=== PATIENT | male | born 1965 | race Hispanic/Latino ===

== ENCOUNTER 2017-10-12 08:45 | Inpatient (IN) | payer OTHER ==
[~2017-10-12] VITALS: Ht 180.3 cm; Wt 95.7 kg
[2017-10-12] MEDS ORDERED: METFORMIN HCL850 M1 ORAL (08:50)
[2017-10-12] MEDS ORDERED: LOSARTAN POTASS50 MG ORAL (08:50)
[2017-10-12] MEDS ORDERED: FUROSEMIDE40 MG ORAL (08:50)
[2017-10-12 09:20] VITALS: BP 141/92
[2017-10-12 09:36] LABS: HEMATOCRIT 42.2 % (42.0-52.0); MEAN CORPUSCULAR VOLUME 78 FL (80-99); PLATELET COUNT 191 K/UL (150-450); RED BLOOD COUNT 5.45 M/UL (4.70-6.10); RED CELL DISTRIBUTION WIDTH 17.6 % (11.6-14.8); WHITE BLOOD COUNT 10.1 K/UL (4.8-10.8)
[2017-10-12 09:39] LABS: ANION GAP 9 mmol/L (5-15); BLOOD UREA NITROGEN 14 mg/dL (7-18); CALCIUM 9.2 MG/DL (8.5-10.1); CARBON DIOXIDE 30 MMOL/L (21-32); CHLORIDE 96 MMOL/L (98-107); INR 1.3 (0.9-1.1); POTASSIUM 3.4 MMOL/L (3.5-5.1); SODIUM 135 MMOL/L (136-145)
[2017-10-12 09:49] LABS: ALANINE AMINOTRANSFERASE 32 U/L (12-78); ALBUMIN 3.3 G/DL (3.4-5.0); ALBUMIN/GLOBULIN RATIO 0.7 (1.0-2.7); ALKALINE PHOSPHATASE 116 U/L (46-116); ASPARTATE AMINO TRANSFERASE 39 U/L (15-37); BILIRUBIN,TOTAL 2.1 MG/DL (0.2-1.0)
[2017-10-12 09:51] LABS: BILIRUBIN,DIRECT 0.8 MG/DL (0.0-0.3)
[2017-10-12] MEDS ORDERED: Meclizine 25mg tab ORAL ONE (10:15)
[2017-10-12 11:10] LABS: APPEARANCE,URINE CLEAR; BILIRUBIN, URINE NEGATIVE (NEGATIVE); COLOR,URINE BROWN; GLUCOSE, URINE (UA) NEGATIVE (NEGATIVE); KETONES,URINE 3+ (NEGATIVE); LEUKOCYTE ESTERASE ,URINE 1+ (NEGATIVE); NITRITE,URINE NEGATIVE (NEGATIVE); PH,URINE 6 (4.5-8.0); PROTEIN,URINE 3+ (NEGATIVE); UROBILINOGEN,URINE 4 MG/DL (0.0-1.0)
[2017-10-12 11:30] VITALS: BP 134/84
--- NOTE | 2017-10-12 12:28 | Diagnostic Imaging Report ---
Indication: Vomiting. Technique: The head was imaged in a 1.5 Bailey magnet. Sequences obtained include sagittal and axial T1 FLAIR, axial T2 fast spin echo with fat saturation, axial T2 FLAIR, diffusion and ADC map. Comparison: None Study is significantly degraded by motion. There is a large focus of diffusion restriction within the left cerebellum involving the vermis and the cerebellar hemisphere particularly the mid to lower aspect of the left cerebellum. Findings consistent with acute CVA. There is associated edema seen as T1 hypointense/T2 hyperintense focus. There is no magnetic susceptibility or evidence of hemorrhage. There is generalized atrophy of the brain which are mild. Patchy periventricular/subcortical T2 hyperintense foci noted consistent with chronic small vessel disease. Mild mucosal thickening involving the paranasal sinuses demonstrated. The corpus callosum is unremarkable. Sella and osseous bone marrow signal. Unremarkable. There is moderate deviation of the nasal septum toward the left. IMPRESSION: Acute subacute left cerebellar CVA. Associated edema. No associated hemorrhage. No associated mass effect. Mild generalized atrophy of the brain. Mild, patchy nonspecific white matter T2 hyperintense foci. This may be due to chronic small vessel disease. Mild sinusitis. Critical value communication. Findings were discussed via telephone with the emergency room department physician Dr. Peterson at 12:22 pm, 10/12/2017 . Motion artifacts
[2017-10-12] MEDS ORDERED: Miralax 17gm pkt ORAL PRN (12:30)
[2017-10-12] MEDS ORDERED: Morphine Sulfate 4mg/ml Inj IVP PRN (12:30)
[2017-10-12] MEDS ORDERED: Albuterol/Ipratropium 3ml neb HHN PRN (12:30)
[2017-10-12] MEDS ORDERED: Enalaprilat 2.5mg/2ml Inj IV PRN (12:30)
[2017-10-12] MEDS ORDERED: dilTIAZem HCl 25mg/5ml Inj IV PRN (12:30)
[2017-10-12] MEDS ORDERED: Ketorolac 30mg Inj IV PRN (12:30)
[2017-10-12] MEDS ORDERED: Nitroglycerin Subl 0.4mg tab SL PRN (12:45)
--- NOTE | 2017-10-12 13:25 | Emergency Room Report ---
History of Present Illness General Chief Complaint: Nausea Source: Patient, EMS Present Illness HPI The patient states that he developed vertigo/spinning sensation over the past 2 days. He is also had vomiting. He states the symptoms are much worse with movement of his head. He states it also is worse when he opens his eyes. He denies trauma. He states that he has recurrent vomiting with the symptoms. He also notes that he has had occasional shortness of breath. He denies chest pain. He denies recent illness. He denies fever or chills. He denies blurry vision. He denies weakness. He has no other complaints. Allergies: Coded Allergies: No Known Allergies (Unverified , 10/12/17) Patient History Past Medical History: see triage record, DM, HTN, CHF Social History: Reports: smoking, alcohol use, drug use Reviewed Nursing Documentation: PMH: Agreed; PSxH: Agreed Nursing Documentation-PMH Past Medical History: No History, Except For Hx Hypertension: Yes Hx Diabetes: Yes Review of Systems All Other Systems: negative except mentioned in HPI Physical Exam Vital Signs Date Time Temp Pulse Resp B/P (MAP) Pulse Ox O2 Delivery O2 Flow Rate FiO2 10/12/17 08:44 98.1 84 20 139/91 97 Room Air 98.1 Sp02 EP Interpretation: reviewed, normal General Appearance: no apparent distress, alert, GCS 15, non-toxic Head: normocephalic, atraumatic Eyes: bilateral eye normal inspection, bilateral eye PERRL ENT: hearing grossly normal, normal pharynx, no angioedema, normal voice Neck: full range of motion, supple/symm/no masses Respiratory: chest non-tender, lungs clear, normal breath sounds, speaking full sentences Cardiovascular #1: regular rate, rhythm, no edema Gastrointestinal: normal bowel sounds, non tender, soft, non-distended, no guarding, no rebound Rectal: deferred Musculoskeletal: normal range of motion, non-tender Neurologic: alert, oriented x3, responsive, motor strength/tone normal, sensory intact, speech normal, nystagmus Psychiatric: judgement/insight normal, memory normal, mood/affect normal, no suicidal/homicidal ideation Skin: normal color, no rash, warm/dry, well hydrated Medical Decision Making Diagnostic Impression: Primary Impression: Cerebrovascular accident (CVA) due to embolism of left cerebellar artery Additional Impression: Elevated troponin ER Course This patient is found to have a large cerebellar infarct. There is some edema but no mass effect. Likely this infarct occurred 2 days ago when the patient's symptoms first started. This was identified on MRI of the brain. The patient also has an indeterminate troponin. Possibly this is a demand ischemia. Regardless, the patient will need to be evaluated by cardiology. The patient also underwent CT of the head to further assess for possibility of bleeding and this showed no bleeding. The patient was given aspirin after I had determined that there was no evidence of intracranial bleed. The patient is admitted for further evaluation and treatment. This patient is critically ill. This patient required complex medical decision- making, aggressive intervention, extensive laboratory workup and monitoring. Critical care time: 40 minutes. Laboratory Tests Test 10/12/17 09:20 10/12/17 11:00 White Blood Count 10.1 K/UL (4.8-10.8) Red Blood Count 5.45 M/UL (4.70-6.10) Hemoglobin 13.0 G/DL (14.2-18.0) L Hematocrit 42.2 % (42.0-52.0) Mean Corpuscular Volume 78 FL (80-99) L Mean Corpuscular Hemoglobin 23.9 PG (27.0-31.0) L Mean Corpuscular Hemoglobin Concent 30.9 G/DL (32.0-36.0) L Red Cell Distribution Width 17.6 % (11.6-14.8) H Platelet Count 191 K/UL (150-450) Mean Platelet Volume 9.6 FL (6.5-10.1) Neutrophils (%) (Auto) % (45.0-75.0) Lymphocytes (%) (Auto) % (20.0-45.0) Monocytes (%) (Auto) % (1.0-10.0) Eosinophils (%) (Auto) % (0.0-3.0) Basophils (%) (Auto) % (0.0-2.0) Differential Total Cells Counted 100 Neutrophils % (Manual) 89 % (45-75) H Lymphocytes % (Manual) 8 % (20-45) L Monocytes % (Manual) 3 % (1-10) Eosinophils % (Manual) 0 % (0-3) Basophils % (Manual) 0 % (0-2) Band Neutrophils 0 % (0-8) Platelet Estimate Adequate Platelet Morphology Normal Anisocytosis 1+ Prothrombin Time 13.4 SEC (9.30-11.50) H Prothrombin Time INR 1.3 (0.9-1.1) H PTT 30 SEC (23-33) Sodium Level 135 MMOL/L (136-145) L Potassium Level 3.4 MMOL/L (3.5-5.1) L Chloride Level 96 MMOL/L (98-107) L Carbon Dioxide Level 30 MMOL/L (21-32) Anion Gap 9 mmol/L (5-15) Blood Urea Nitrogen 14 mg/dL (7-18) Creatinine 1.0 MG/DL (0.55-1.30) Estimate Glomerular Filtration Rate > 60 mL/min (>60) Glucose Level 121 MG/DL (74-106) H Calcium Level 9.2 MG/DL (8.5-10.1) Total Bilirubin 2.1 MG/DL (0.2-1.0) H Direct Bilirubin 0.8 MG/DL (0.0-0.3) H Aspartate Amino Transferase (AST) 39 U/L (15-37) H Alanine Aminotransferase (ALT) 32 U/L (12-78) Alkaline Phosphatase 116 U/L (46-116) Troponin I 0.425 ng/mL (0.000-0.056) Total Protein 7.9 G/DL (6.4-8.2) Albumin 3.3 G/DL (3.4-5.0) L Globulin 4.6 g/dL Albumin/Globulin Ratio 0.7 (1.0-2.7) L Lipase 144 U/L (73-393) Urine Color Brown Urine Appearance Clear Urine pH 6 (4.5-8.0) Urine Specific [place] 1.025 (1.005-1.035) Urine Protein 3+ (NEGATIVE) H Urine Glucose (UA) Negative (NEGATIVE) Urine Ketones 3+ (NEGATIVE) H Urine Occult Blood 1+ (NEGATIVE) H Urine Nitrite Negative (NEGATIVE) Urine Bilirubin Negative (NEGATIVE) Urine Urobilinogen 4 MG/DL (0.0-1.0) H Urine Leukocyte Esterase 1+ (NEGATIVE) H Urine RBC 0-2 /HPF (0 - 0) H Urine WBC 0-2 /HPF (0 - 0) Urine Squamous Epithelial Cells Occasional /LPF Urine Bacteria Few /HPF (NONE) Urine Opiates Screen Negative (NEGATIVE) Urine Barbiturates Screen Negative (NEGATIVE) Phencyclidine (PCP) Screen Negative (NEGATIVE) Urine Amphetamines Screen Negative (NEGATIVE) Urine Benzodiazepines Screen Negative (NEGATIVE) Urine Cocaine Screen Negative (NEGATIVE) Urine Marijuana (THC) Screen Positive (NEGATIVE) H EKG Diagnostic Results Rate: normal Rhythm: NSR ST Segments: no acute changes Other Impression L.BBB Rhythm Strip Diag. Results EP Interpretation: yes Rate: 100 Rhythm: NSR, no PVC's, no ectopy Last Vital Signs Date Time Temp Pulse Resp B/P (MAP) Pulse Ox O2 Delivery O2 Flow Rate FiO2 10/12/17 11:30 80 16 134/84 95 Room Air 10/12/17 09:20 98.1 98.1 Disposition: ADMITTED INPATIENT Condition: Critical Referrals: Daryl DAVEREFERRING (PCP) JARVIS WATTS D.O. Oct 12, 2017 13:25
[2017-10-12 14:00] VITALS: BP 133/89
--- NOTE | 2017-10-12 14:11 | Diagnostic Imaging Report ---
Indication: Vomiting. Acute cerebellar CVA Technique: Contiguous 5 mm thick transaxial imaging of the head obtained in a Siemens Sensation [address] scanner. Soft tissue and bone windows generated. Automatic Exposure Control was utilized. Total Dose length Product (DLP): 1499.[address] Dose Index Volume (CTDIvol): 70.38 mGy Comparison: none Findings: Low-attenuation edema demonstrated in the left cerebellum. There is no evidence of acute hemorrhage. No mass effect on the fourth ventricle demonstrated. Supratentorial brain appears relatively normal. There is minimal atrophy present. Some mild scattered low attenuation involving white matter noted. IMPRESSION: No acute hemorrhage identified. Acute to subacute left cerebellar CVA noted. The CT scanner at [facility] is accredited by the [employer] and the scans are performed using dose optimization techniques as appropriate to a performed exam including Automatic Exposure control.
[2017-10-12 15:01] VITALS: BP 131/87
[2017-10-12] MEDS: Heparin 5000 units/ml inj SUBQ SCH ×2 (15:48→21:45)
--- NOTE | 2017-10-12 15:54 | History & Physical ---
History and Physical History & Physicial Dictated for Int Med-Dr Hernández no. [id number]. DARA WELLINGTON Oct 12, 2017 15:54
[2017-10-12] MEDS: NovoLOG Insulin Flexpen SUBQ SCH ×2 (16:54→20:51)
--- NOTE | 2017-10-12 18:39 | Consultation ---
History of Present Illness General Date patient seen: Oct 12, 2017 Chief Complaint: Nausea Present Illness HPI 52 year old male with hx of DM, and HTN presented to er c/o vertigo/spinning sensation over the past 2 days. He is also had vomiting. He states the symptoms are much worse with movement of his head. He states it also is worse when he opens his eyes. He also has had occasional shortness of breath. Pt is admitted to telemetry for further work up. Allergies: Coded Allergies: No Known Allergies (Unverified , 10/12/17) Medication History Scheduled Furosemide* (Lasix*), 40 MG ORAL DAILY, (Reported) Losartan Potassium* (Losartan Potassium*), 50 MG ORAL DAILY, (Reported) Metformin Hcl* (Metformin Hcl*), 850 MG ORAL DAILY, (Reported) Patient History Healthcare decision maker Resuscitation status Full Code Advanced Directive on File Past Medical/Surgical History Past Medical/Surgical History: (1) HTN (hypertension) (2) Diabetes mellitus Review of Systems All Other Systems: negative except mentioned in HPI Physical Exam General Appearance: WD/WN Lines, tubes and drains: peripheral HEENT: normocephalic, anicteric Neck: non-tender, normal alignment Respiratory/Chest: lungs clear, normal breath sounds Breasts: no masses Cardiovascular/Chest: normal peripheral pulses Abdomen: normal bowel sounds Genitourinary/Rectal: normal genital exam Extremities: non-tender Last 24 Hour Vital Signs Date Time Temp Pulse Resp B/P (MAP) Pulse Ox O2 Delivery O2 Flow Rate FiO2 10/12/17 15:12 79 10/12/17 15:01 97.0 81 19 131/87 98 Room Air 97.0 10/12/17 14:45 98.1 81 21 133/89 95 Room Air 98.1 10/12/17 14:00 81 21 133/89 95 Room Air 10/12/17 11:30 80 16 134/84 95 Room Air 10/12/17 09:20 98.1 97 24 141/92 95 Room Air 98.1 10/12/17 08:44 98.1 84 20 139/91 97 Room Air 98.1 Laboratory Tests Test 10/12/17 09:20 10/12/17 11:00 White Blood Count 10.1 K/UL (4.8-10.8) Red Blood Count 5.45 M/UL (4.70-6.10) Hemoglobin 13.0 G/DL (14.2-18.0) L Hematocrit 42.2 % (42.0-52.0) Mean Corpuscular Volume 78 FL (80-99) L Mean Corpuscular Hemoglobin 23.9 PG (27.0-31.0) L Mean Corpuscular Hemoglobin Concent 30.9 G/DL (32.0-36.0) L Red Cell Distribution Width 17.6 % (11.6-14.8) H Platelet Count 191 K/UL (150-450) Mean Platelet Volume 9.6 FL (6.5-10.1) Neutrophils (%) (Auto) % (45.0-75.0) Lymphocytes (%) (Auto) % (20.0-45.0) Monocytes (%) (Auto) % (1.0-10.0) Eosinophils (%) (Auto) % (0.0-3.0) Basophils (%) (Auto) % (0.0-2.0) Differential Total Cells Counted 100 Neutrophils % (Manual) 89 % (45-75) H Lymphocytes % (Manual) 8 % (20-45) L Monocytes % (Manual) 3 % (1-10) Eosinophils % (Manual) 0 % (0-3) Basophils % (Manual) 0 % (0-2) Band Neutrophils 0 % (0-8) Platelet Estimate Adequate Platelet Morphology Normal Anisocytosis 1+ Prothrombin Time 13.4 SEC (9.30-11.50) H Prothromb Time International Ratio 1.3 (0.9-1.1) H Activated Partial Thromboplast Time 30 SEC (23-33) Sodium Level 135 MMOL/L (136-145) L Potassium Level 3.4 MMOL/L (3.5-5.1) L Chloride Level 96 MMOL/L (98-107) L Carbon Dioxide Level 30 MMOL/L (21-32) Anion Gap 9 mmol/L (5-15) Blood Urea Nitrogen 14 mg/dL (7-18) Creatinine 1.0 MG/DL (0.55-1.30) Estimat Glomerular Filtration Rate > 60 mL/min (>60) Glucose Level 121 MG/DL (74-106) H Calcium Level 9.2 MG/DL (8.5-10.1) Total Bilirubin 2.1 MG/DL (0.2-1.0) H Direct Bilirubin 0.8 MG/DL (0.0-0.3) H Aspartate Amino Transf (AST/SGOT) 39 U/L (15-37) H Alanine Aminotransferase (ALT/SGPT) 32 U/L (12-78) Alkaline Phosphatase 116 U/L (46-116) Troponin I 0.425 ng/mL (0.000-0.056) Total Protein 7.9 G/DL (6.4-8.2) Albumin 3.3 G/DL (3.4-5.0) L Globulin 4.6 g/dL Albumin/Globulin Ratio 0.7 (1.0-2.7) L Lipase 144 U/L (73-393) Urine Color Brown Urine Appearance Clear Urine pH 6 (4.5-8.0) Urine Specific [place] 1.025 (1.005-1.035) Urine Protein 3+ (NEGATIVE) H Urine Glucose (UA) Negative (NEGATIVE) Urine Ketones 3+ (NEGATIVE) H Urine Occult Blood 1+ (NEGATIVE) H Urine Nitrite Negative (NEGATIVE) Urine Bilirubin Negative (NEGATIVE) Urine Urobilinogen 4 MG/DL (0.0-1.0) H Urine Leukocyte Esterase 1+ (NEGATIVE) H Urine RBC 0-2 /HPF (0 - 0) H Urine WBC 0-2 /HPF (0 - 0) Urine Squamous Epithelial Cells Occasional /LPF Urine Bacteria Few /HPF (NONE) Urine Opiates Screen Negative (NEGATIVE) Urine Barbiturates Screen Negative (NEGATIVE) Phencyclidine (PCP) Screen Negative (NEGATIVE) Urine Amphetamines Screen Negative (NEGATIVE) Urine Benzodiazepines Screen Negative (NEGATIVE) Urine Cocaine Screen Negative (NEGATIVE) Urine Marijuana (THC) Screen Positive (NEGATIVE) H Height (Feet): 5 Height (Inches): 11.00 Weight (Pounds): 230 Medications Current Medications Medications (Trade) Dose Ordered Sig/Gildardo Route PRN Reason Start Time Stop Time Status Last Admin Dose Admin Acetaminophen (Tylenol) 650 mg Q4H PRN ORAL T>100.5 10/12/17 12:30 11/11/17 12:29 Albuterol/ Ipratropium (Albuterol/ Ipratropium) 3 ml Q4H PRN HHN Shortness of Breath 10/12/17 12:30 10/17/17 12:29 Aspirin (ASA) 162 mg DAILY ORAL 10/13/17 13:00 11/12/17 12:59 Dextrose (Dextrose 50%) STAT PRN IV Hypoglycemia 10/12/17 12:30 11/11/17 12:29 Diltiazem HCl (Cardizem) 10 mg EVERY HOUR PRN IV HR more than 120BPM 10/12/17 12:30 11/11/17 12:29 Enalaprilat (Vasotec) 2.5 mg Q6H PRN IV SBP > 160mmHg 10/12/17 12:30 11/11/17 12:29 Heparin Sodium (Porcine) (Heparin 5000 units/ml) 5,000 units EVERY 8 HOURS SUBQ 10/12/17 14:00 11/11/17 13:59 10/12/17 15:48 Insulin Aspart (NovoLOG) BEFORE MEALS AND HS SUBQ 10/12/17 16:30 11/11/17 16:29 10/12/17 16:54 Losartan Potassium (Cozaar) 50 mg DAILY ORAL 10/13/17 09:00 11/12/17 08:59 Morphine Sulfate (Morphine Sulfate) 2 mg Q4H PRN IVP Severe Pain (Pain Scale 7-10) 10/12/17 12:30 10/19/17 12:29 Nitroglycerin (Ntg) 0.4 mg Q5MIN X 3 DOSES PRN SL Prn Chest Pain 10/12/17 12:45 11/11/17 12:44 Ondansetron HCl (Zofran) 4 mg Q6H PRN IVP Nausea & Vomiting 10/12/17 12:30 11/11/17 12:29 Pantoprazole (Protonix) 40 mg DAILY ORAL 10/13/17 09:00 11/12/17 08:59 Polyethylene Glycol (Miralax) 17 gm DAILYPRN PRN ORAL Constipation 10/12/17 12:30 11/11/17 12:29 Temazepam (Restoril) 15 mg HSPRN PRN ORAL Insomnia 10/12/17 21:00 10/19/17 20:59 Assessment/Plan Problem List: (1) Cerebrovascular accident (CVA) due to embolism of left cerebellar artery ICD Codes: I63.442 - Cerebral infarction due to embolism of left cerebellar artery SNOMED: 057381267 (2) Elevated troponin ICD Codes: R74.8 - Abnormal levels of other serum enzymes SNOMED: 593642134, 681580566, 184934296 (3) Diabetes mellitus ICD Codes: E11.9 - Type 2 diabetes mellitus without complications SNOMED: 63183704 (4) HTN (hypertension) ICD Codes: I10 - Essential (primary) hypertension SNOMED: 81038202 Assessment/Plan neuro f/u symptomatic treatment cardio evaluation to optimize the cardiac meds dvt prophylaxis sliding scale Wendy Marroquin MD Oct 12, 2017 18:39
--- NOTE | 2017-10-12 19:42 | Cardiology Progress Note ---
Assessment/Plan Assessment/Plan vertigo cerebellar cva htn dm tobaco use do marijuana use poor medical compliance smoking cessation d./ w family needs neuro evla carotidu duplex ekg repeat trop and start statin / ecotrin Subjective Cardiovascular: Denies: chest pain, lightheadedness, palpitations Respiratory: Denies: shortness of breath Gastrointestinal/Abdominal: Reports: nausea; Denies: abdominal pain Genitourinary: Denies: burning Objective Last 24 Hour Vital Signs Date Time Temp Pulse Resp B/P (MAP) Pulse Ox O2 Delivery O2 Flow Rate FiO2 10/12/17 15:12 79 10/12/17 15:01 97.0 81 19 131/87 98 Room Air 97.0 10/12/17 14:45 98.1 81 21 133/89 95 Room Air 98.1 10/12/17 14:00 81 21 133/89 95 Room Air 10/12/17 11:30 80 16 134/84 95 Room Air 10/12/17 09:20 98.1 97 24 141/92 95 Room Air 98.1 10/12/17 08:44 98.1 84 20 139/91 97 Room Air 98.1 General Appearance: alert Cardiovascular: normal rate Respiratory/Chest: lungs clear, normal breath sounds Abdomen: normal bowel sounds, non tender, soft Extremities: non-tender, no swelling Laboratory Tests Test 10/12/17 09:20 10/12/17 11:00 White Blood Count 10.1 K/UL (4.8-10.8) Red Blood Count 5.45 M/UL (4.70-6.10) Hemoglobin 13.0 G/DL (14.2-18.0) L Hematocrit 42.2 % (42.0-52.0) Mean Corpuscular Volume 78 FL (80-99) L Mean Corpuscular Hemoglobin 23.9 PG (27.0-31.0) L Mean Corpuscular Hemoglobin Concent 30.9 G/DL (32.0-36.0) L Red Cell Distribution Width 17.6 % (11.6-14.8) H Platelet Count 191 K/UL (150-450) Mean Platelet Volume 9.6 FL (6.5-10.1) Neutrophils (%) (Auto) % (45.0-75.0) Lymphocytes (%) (Auto) % (20.0-45.0) Monocytes (%) (Auto) % (1.0-10.0) Eosinophils (%) (Auto) % (0.0-3.0) Basophils (%) (Auto) % (0.0-2.0) Differential Total Cells Counted 100 Neutrophils % (Manual) 89 % (45-75) H Lymphocytes % (Manual) 8 % (20-45) L Monocytes % (Manual) 3 % (1-10) Eosinophils % (Manual) 0 % (0-3) Basophils % (Manual) 0 % (0-2) Band Neutrophils 0 % (0-8) Platelet Estimate Adequate Platelet Morphology Normal Anisocytosis 1+ Prothrombin Time 13.4 SEC (9.30-11.50) H Prothromb Time International Ratio 1.3 (0.9-1.1) H Activated Partial Thromboplast Time 30 SEC (23-33) Sodium Level 135 MMOL/L (136-145) L Potassium Level 3.4 MMOL/L (3.5-5.1) L Chloride Level 96 MMOL/L (98-107) L Carbon Dioxide Level 30 MMOL/L (21-32) Anion Gap 9 mmol/L (5-15) Blood Urea Nitrogen 14 mg/dL (7-18) Creatinine 1.0 MG/DL (0.55-1.30) Estimat Glomerular Filtration Rate > 60 mL/min (>60) Glucose Level 121 MG/DL (74-106) H Calcium Level 9.2 MG/DL (8.5-10.1) Total Bilirubin 2.1 MG/DL (0.2-1.0) H Direct Bilirubin 0.8 MG/DL (0.0-0.3) H Aspartate Amino Transf (AST/SGOT) 39 U/L (15-37) H Alanine Aminotransferase (ALT/SGPT) 32 U/L (12-78) Alkaline Phosphatase 116 U/L (46-116) Troponin I 0.425 ng/mL (0.000-0.056) Total Protein 7.9 G/DL (6.4-8.2) Albumin 3.3 G/DL (3.4-5.0) L Globulin 4.6 g/dL Albumin/Globulin Ratio 0.7 (1.0-2.7) L Lipase 144 U/L (73-393) Urine Color Brown Urine Appearance Clear Urine pH 6 (4.5-8.0) Urine Specific [place] 1.025 (1.005-1.035) Urine Protein 3+ (NEGATIVE) H Urine Glucose (UA) Negative (NEGATIVE) Urine Ketones 3+ (NEGATIVE) H Urine Occult Blood 1+ (NEGATIVE) H Urine Nitrite Negative (NEGATIVE) Urine Bilirubin Negative (NEGATIVE) Urine Urobilinogen 4 MG/DL (0.0-1.0) H Urine Leukocyte Esterase 1+ (NEGATIVE) H Urine RBC 0-2 /HPF (0 - 0) H Urine WBC 0-2 /HPF (0 - 0) Urine Squamous Epithelial Cells Occasional /LPF Urine Bacteria Few /HPF (NONE) Urine Opiates Screen Negative (NEGATIVE) Urine Barbiturates Screen Negative (NEGATIVE) Phencyclidine (PCP) Screen Negative (NEGATIVE) Urine Amphetamines Screen Negative (NEGATIVE) Urine Benzodiazepines Screen Negative (NEGATIVE) Urine Cocaine Screen Negative (NEGATIVE) Urine Marijuana (THC) Screen Positive (NEGATIVE) DYLAN OCASIO Oct 12, 2017 19:42
[2017-10-12 20:00] VITALS: BP 132/86
[2017-10-12] MEDS ORDERED: Atorvastatin 20mg tab ORAL SCH (21:00)
--- NOTE | 2017-10-12 22:00 | History and Physical Report ---
DATE OF ADMISSION: 10/12/2017 CHIEF COMPLAINT: The patient is a 52-year-old male, presents with chief complaint of nausea, vomiting, and vertigo. HISTORY OF PRESENT ILLNESS: Began one day prior to admission. The patient began to experience nausea and vomiting. The patient was also complaining of being dizzy. The patient was unsteady on his feet. Much of the history and physical is obtained from the patient's significant other, Alondra at the bedside. The patient himself is extremely somnolent, however, he is arousable. The patient presented to [place] emergency room. The patient was admitted with nausea, vomiting, vertigo, and hypoglycemia. REVIEW OF SYSTEMS: Unable to assess, secondary to the patient's mental status. PAST MEDICAL HISTORY: Significant for: 1. Diabetes type 2. 2. Hypertension. PAST SURGICAL HISTORY: The patient denies. CURRENT MEDICATIONS: 1. Furosemide 40 mg p.o. daily. 2. Losartan 50 mg p.o. daily. 3. Metformin 850 mg p.o. twice daily. ALLERGIES: No known drug allergies. SOCIAL HISTORY: The patient has a significant other. The patient admits to tobacco use of one-quarter pack per day. The patient admits to alcohol use on the weekends. PHYSICAL EXAMINATION: VITAL SIGNS: Temperature 98.1, respirations 20, pulse 84, and blood pressure 139/91. GENERAL: The patient is a well-developed, well-nourished, slightly obese male, in no apparent distress. HEENT: Eyes, pupils are equal and responsive to light and accommodation. Extraocular movements are intact. NECK: Supple without lymphadenopathy. CHEST: Lungs are clear to auscultation bilaterally without wheezes or rales. CARDIOVASCULAR: Regular rhythm and rate. S1, S2 normal without murmurs, rubs, or gallops. ABDOMEN: Soft, nontender, and nondistended. Positive bowel sounds. No evidence of hepatosplenomegaly. Currently, no rebound or guarding noted. EXTREMITIES: Negative for clubbing, cyanosis, or edema. RECTAL/GENITAL: Refused. NEUROLOGIC: Cranial nerves II through XII are grossly intact without focal deficits. Motor strength is 5/5 bilaterally. LABORATORY AND DIAGNOSTIC DATA: Laboratory studies, WBC 10.1, hemoglobin 13.0, hematocrit 42.2, and platelets 191,000. Sodium 135, potassium 3.4, chloride 96, CO2 30, BUN 14, creatinine 1.0, and glucose 121. Troponin elevated at 0.425. An MRI of the brain revealed acute left cerebellar cerebrovascular accident. ASSESSMENT: This is a 52-year-old male with: 1. Nausea with vomiting. 2. Vertigo. 3. Acute cerebellar cerebrovascular accident, left. 4. Elevated troponin. 5. Diabetes type 2. 6. Hypertension. TREATMENT: 1. Nausea with vomiting/vertigo. This is probably secondary to acute stroke below. 2. Acute left cerebellar cerebrovascular accident. A Neurology consultation has been obtained with Dr. Matheus Elise. The patient has been started on aspirin. We will follow recommendations of Neurology. Carotid duplex, Dopplers, and echocardiogram are pending. 3. Elevated troponin. A Cardiology consultation has been obtained with Dr. Donald Hollingsworth. 4. Diabetes type 2. The patient is currently stable off medication. 5. Hypertension. Continue losartan as above. Daniel Duffy M.D. DR: DANISH JOB#: [id number] CC:
[2017-10-13] VITALS (11 sets, daily range): BP systolic 106–139; BP diastolic 9–115
[2017-10-13] MEDS: Heparin 5000 units/ml inj SUBQ SCH ×2 (05:34→13:12)
[2017-10-13] MEDS: NovoLOG Insulin Flexpen SUBQ SCH ×3 (06:16→16:53)
[2017-10-13 08:11] LABS: BASOPHILS % (AUTO) 0.8 % (0.0-2.0); EOSINOPHILS % (AUTO) 7.4 % (0.0-3.0); HEMOGLOBIN 13.2 G/DL (14.2-18.0); LYMPHOCYTES % (AUTO) 14.3 % (20.0-45.0); MEAN CORPUSCULAR VOLUME 78 FL (80-99); MONOCYTES % (AUTO) 5.9 % (1.0-10.0); NEUTROPHILS % (AUTO) 71.7 % (45.0-75.0); PLATELET COUNT 211 K/UL (150-450); RED BLOOD COUNT 5.54 M/UL (4.70-6.10); RED CELL DISTRIBUTION WIDTH 17.7 % (11.6-14.8); WHITE BLOOD COUNT 8.9 K/UL (4.8-10.8)
[2017-10-13 08:32] LABS: INR 1.2 (0.9-1.1)
[2017-10-13 08:39] LABS: ANION GAP 9 mmol/L (5-15); BLOOD UREA NITROGEN 15 mg/dL (7-18); CARBON DIOXIDE 31 MMOL/L (21-32); CHLORIDE 98 MMOL/L (98-107); CREATININE 0.8 MG/DL (0.55-1.30); POTASSIUM 3.7 MMOL/L (3.5-5.1); SODIUM 138 MMOL/L (136-145)
[2017-10-13 08:48] LABS: CHOLESTEROL 78 MG/DL (< 200); HDL CHOLESTEROL 28 MG/DL (40-60); TRIGLYCERIDES 37 MG/DL (30-150)
[2017-10-13] MEDS ORDERED: Losartan 50mg tab ORAL SCH (09:00)
[2017-10-13] MEDS ORDERED: Aspirin Baby 81mg ORAL SCH (13:00)
--- NOTE | 2017-10-13 13:18 | Pulmonology Progress Note ---
Assessment/Plan Problems: (1) Cerebrovascular accident (CVA) due to embolism of left cerebellar artery (2) Elevated troponin (3) EF of 15% (4) Ventricular mural thrombus (5) HTN (hypertension) (6) Diabetes mellitus Assessment/Plan Neuro and cardio to see symptomatic treatment needs some kind of anticoagulation sliding scale diabetic diet. Subjective ROS Limited/Unobtainable: No Interval Events: still dizzy Allergies: Coded Allergies: No Known Allergies (Unverified , 10/12/17) Objective Last 24 Hour Vital Signs Date Time Temp Pulse Resp B/P (MAP) Pulse Ox O2 Delivery O2 Flow Rate FiO2 10/13/17 08:38 142/90 10/13/17 08:13 100 18 Room Air 10/13/17 08:00 111 10/13/17 08:00 97.9 108 20 131/98 94 Room Air 97.9 10/13/17 04:00 87 10/13/17 04:00 98.1 85 20 139/89 96 Room Air 98.1 10/13/17 00:00 89 10/13/17 00:00 99.0 89 20 127/91 95 Room Air 99.0 10/12/17 21:41 88 18 Room Air 10/12/17 20:00 88 10/12/17 20:00 98.2 87 20 132/86 92 Room Air 98.2 10/12/17 15:12 79 10/12/17 15:01 97.0 81 19 131/87 98 Room Air 97.0 10/12/17 14:45 98.1 81 21 133/89 95 Room Air 98.1 10/12/17 14:00 81 21 133/89 95 Room Air Intake and Output 10/12/17 10/13/17 19:00 07:00 Intake Total 1400 ml 120 ml Output Total 100 ml 500 ml Balance 1300 ml -380 ml Intake Oral 120 ml IV Total 1000 ml Other 400 ml Output Urine Total 100 ml 500 ml # Voids 3 1 General Appearance: WD/WN HEENT: normocephalic, atraumatic Respiratory/Chest: chest wall non-tender, normal breath sounds Cardiovascular: normal peripheral pulses, normal rate Abdomen: normal bowel sounds, soft, non tender Genitourinary: normal external genitalia Extremities: no cyanosis Skin: no rash 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 grossly normal, abnormal gait Laboratory Tests 10/13/17 06:40: White Blood Count 8.9, Red Blood Count 5.54, Hemoglobin 13.2L, Hematocrit 43.0, Mean Corpuscular Volume 78L, Mean Corpuscular Hemoglobin 23.9L, Mean Corpuscular Hemoglobin Concent 30.8L, Red Cell Distribution Width 17.7H, Platelet Count 211, Mean Platelet Volume 7.8, Neutrophils (%) (Auto) 71.7, Lymphocytes (%) (Auto) 14.3L, Monocytes (%) (Auto) 5.9, Eosinophils (%) (Auto) 7.4H, Basophils (%) (Auto) 0.8, Prothrombin Time 12.5H, Prothromb Time International Ratio 1.2H, Activated Partial Thromboplast Time 29, Sodium Level 138, Potassium Level 3.7, Chloride Level 98, Carbon Dioxide Level 31, Anion Gap 9, Blood Urea Nitrogen 15, Creatinine 0.8, Estimat Glomerular Filtration Rate > 60, Glucose Level 99, Calcium Level 9.0, Troponin I 0.419H, C-Reactive Protein, Quantitative 3.3H, Triglycerides Level 37, Cholesterol Level 78, LDL Cholesterol 48, HDL Cholesterol 28L, Cholesterol/HDL Ratio 2.8L, Thyroid Stimulating Hormone (TSH) 1.671 Current Medications Medications (Trade) Dose Ordered Sig/Gildardo Route PRN Reason Start Time Stop Time Status Last Admin Dose Admin Acetaminophen (Tylenol) 650 mg Q4H PRN ORAL T>100.5 10/12/17 12:30 11/11/17 12:29 Albuterol/ Ipratropium (Albuterol/ Ipratropium) 3 ml Q4H PRN HHN Shortness of Breath 10/12/17 12:30 10/17/17 12:29 Aspirin (ASA) 162 mg DAILY ORAL 10/13/17 13:00 11/12/17 12:59 Atorvastatin Calcium (Lipitor) 40 mg BEDTIME ORAL 10/12/17 21:00 11/11/17 20:59 10/12/17 20:50 Dextrose (Dextrose 50%) STAT PRN IV Hypoglycemia 10/12/17 12:30 11/11/17 12:29 Diltiazem HCl (Cardizem) 10 mg EVERY HOUR PRN IV HR more than 120BPM 10/12/17 12:30 11/11/17 12:29 Enalaprilat (Vasotec) 2.5 mg Q6H PRN IV SBP > 160mmHg 10/12/17 12:30 11/11/17 12:29 Heparin Sodium (Porcine) (Heparin 5000 units/ml) 5,000 units EVERY 8 HOURS SUBQ 10/12/17 14:00 11/11/17 13:59 10/13/17 05:34 Insulin Aspart (NovoLOG) BEFORE MEALS AND HS SUBQ 10/12/17 16:30 11/11/17 16:29 10/12/17 20:51 Losartan Potassium (Cozaar) 50 mg DAILY ORAL 10/13/17 09:00 11/12/17 08:59 10/13/17 08:38 Morphine Sulfate (Morphine Sulfate) 2 mg Q4H PRN IVP Severe Pain (Pain Scale 7-10) 10/12/17 12:30 10/19/17 12:29 Nitroglycerin (Ntg) 0.4 mg Q5MIN X 3 DOSES PRN SL Prn Chest Pain 10/12/17 12:45 11/11/17 12:44 Ondansetron HCl (Zofran) 4 mg Q6H PRN IVP Nausea & Vomiting 10/12/17 12:30 11/11/17 12:29 Pantoprazole (Protonix) 40 mg DAILY ORAL 10/13/17 09:00 11/12/17 08:59 10/13/17 08:38 Polyethylene Glycol (Miralax) 17 gm DAILYPRN PRN ORAL Constipation 10/12/17 12:30 11/11/17 12:29 Temazepam (Restoril) 15 mg HSPRN PRN ORAL Insomnia 10/12/17 21:00 10/19/17 20:59 Wendy Marroquin MD Oct 13, 2017 13:18
--- NOTE | 2017-10-13 14:18 | Consultation ---
Consult Note Consult Note NEUROLOGY CONSULTATION: Full note dictated #[id number] 52 y/o, RH, HM with long H/O untreated HTN and DM. On 10/11/17 at ~ 4 PM he suddenly became vertiginous, had nausea, vomiting. [place] [facility] [place] of the brain revealed a cerebellar infarct. He had an echocardiogram done which revealed an EF of 15% and a LV clot. ON EXAM: Somnolent. Fully oriented except for exact date. Mild memory problems. Clumsiness on MARK on left. Truncal ataxia. IMPRESSION: Large left cerebellar infarct most probably cardioembolic. REC: Watch in ICU setting. BP control 110-130 systolic range. Anticoagulate after [address] 10/14/17. If patient decompensates he will need neurosurgical intervention. William Elise M.D., M.S.P.Daryl. WILLIAM ELISE Oct 13, 2017 14:18
--- NOTE | 2017-10-13 14:37 | Cardiology Report ---
APPROVED REPORT EXAM: Two-dimensional and M-mode echocardiogram with Doppler and color Doppler. INDICATION EJECTION FRACTION M-Mode DIMENSIONS IVSd1.4 (0.7-1.1cm)Left Atrium (MM)5.2 (1.6-4.0cm) LVDd5.6 (3.5-5.6cm)Aortic Root3.7 (2.0-3.7cm) PWd1.3 (0.7-1.1cm)Aortic Cusp Exc.1.8 (1.5-2.0cm) IVSs2.4 cm LVDs4.0 (2.5-4.0cm) PWs2.0 cm Normal left ventricular chamber size. . mobile apical thrombus with the area of 5.4 cm present . Left ventricular ejection fraction estimated to be 15-20 %. Mild left ventricular hypertrophy by 2-D. No evidence of pericardial effusion. Mild bi- atrial enlargement. Right ventricular chamber sizes is within normal limits. Focal aortic valve sclerosis with adequate cusp excursion. Moderately Thickened mitral valve leaflets with normal excursion. Moderately Mitral annulus and aortic root calcification. Pulmonic valve not well visualized. Normal tricuspid valve structure. IVC dilated at 3.4 cm without physiologic collapse suggestive of increased RA pressure. A color flow and spectral Doppler study was performed and revealed: No aortic regurgitation. Mild mitral regurgitation. Left ventricular diastolic function cannot determined due to arrhythmia . Mild tricuspid regurgitation. Tricuspid systolic velocities suggests peak right ventricular systolic pressure of 44 mmHg,consistent with moderate pulmonary hypertension. No Pulmonic regurgitation present.
--- NOTE | 2017-10-13 15:04 | Cardiology Report ---
APPROVED REPORT EKG Measurement Heart [id number] ID [id number] Normal sinus rhythm Possible Left atrial enlargement Left axis deviation Left bundle branch block Abnormal ECG
--- NOTE | 2017-10-13 15:18 | Internal Med Progress Note ---
Subjective Physician Name Juan Hernández Attending Physician Juan Hernández MD Current Medications Medications (Trade) Dose Ordered Sig/Gildardo Route PRN Reason Start Time Stop Time Status Last Admin Dose Admin Acetaminophen (Tylenol) 650 mg Q4H PRN ORAL T>100.5 10/12/17 12:30 11/11/17 12:29 Albuterol/ Ipratropium (Albuterol/ Ipratropium) 3 ml Q4H PRN HHN Shortness of Breath 10/12/17 12:30 10/17/17 12:29 Aspirin (ASA) 162 mg DAILY ORAL 10/13/17 13:00 11/12/17 12:59 10/13/17 13:26 Atorvastatin Calcium (Lipitor) 40 mg BEDTIME ORAL 10/12/17 21:00 11/11/17 20:59 10/12/17 20:50 Dextrose (Dextrose 50%) STAT PRN IV Hypoglycemia 10/12/17 12:30 11/11/17 12:29 Diltiazem HCl (Cardizem) 10 mg EVERY HOUR PRN IV HR more than 120BPM 10/12/17 12:30 11/11/17 12:29 Enalaprilat (Vasotec) 2.5 mg Q6H PRN IV SBP > 160mmHg 10/12/17 12:30 11/11/17 12:29 Heparin Sodium (Porcine) (Heparin 5000 units/ml) 5,000 units EVERY 8 HOURS SUBQ 10/12/17 14:00 11/11/17 13:59 10/13/17 13:12 Insulin Aspart (NovoLOG) BEFORE MEALS AND HS SUBQ 10/12/17 16:30 11/11/17 16:29 10/12/17 20:51 Losartan Potassium (Cozaar) 50 mg DAILY ORAL 10/13/17 09:00 11/12/17 08:59 10/13/17 08:38 Morphine Sulfate (Morphine Sulfate) 2 mg Q4H PRN IVP Severe Pain (Pain Scale 7-10) 10/12/17 12:30 10/19/17 12:29 Nitroglycerin (Ntg) 0.4 mg Q5MIN X 3 DOSES PRN SL Prn Chest Pain 10/12/17 12:45 11/11/17 12:44 Ondansetron HCl (Zofran) 4 mg Q6H PRN IVP Nausea & Vomiting 10/12/17 12:30 11/11/17 12:29 Pantoprazole (Protonix) 40 mg DAILY ORAL 10/13/17 09:00 11/12/17 08:59 10/13/17 08:38 Polyethylene Glycol (Miralax) 17 gm DAILYPRN PRN ORAL Constipation 10/12/17 12:30 11/11/17 12:29 Temazepam (Restoril) 15 mg HSPRN PRN ORAL Insomnia 10/12/17 21:00 10/19/17 20:59 Allergies: Coded Allergies: No Known Allergies (Unverified , 10/12/17) Subjective awake, alert, responsive Objective Last Vital Signs Date Time Temp Pulse Resp B/P (MAP) Pulse Ox O2 Delivery O2 Flow Rate FiO2 10/13/17 12:00 89 10/13/17 08:38 142/90 10/13/17 08:13 18 Room Air 10/13/17 08:00 97.9 94 97.9 Laboratory Tests Test 10/13/17 06:40 White Blood Count 8.9 K/UL (4.8-10.8) Red Blood Count 5.54 M/UL (4.70-6.10) Hemoglobin 13.2 G/DL (14.2-18.0) L Hematocrit 43.0 % (42.0-52.0) Mean Corpuscular Volume 78 FL (80-99) L Mean Corpuscular Hemoglobin 23.9 PG (27.0-31.0) L Mean Corpuscular Hemoglobin Concent 30.8 G/DL (32.0-36.0) L Red Cell Distribution Width 17.7 % (11.6-14.8) H Platelet Count 211 K/UL (150-450) Mean Platelet Volume 7.8 FL (6.5-10.1) Neutrophils (%) (Auto) 71.7 % (45.0-75.0) Lymphocytes (%) (Auto) 14.3 % (20.0-45.0) L Monocytes (%) (Auto) 5.9 % (1.0-10.0) Eosinophils (%) (Auto) 7.4 % (0.0-3.0) H Basophils (%) (Auto) 0.8 % (0.0-2.0) Prothrombin Time 12.5 SEC (9.30-11.50) H Prothromb Time International Ratio 1.2 (0.9-1.1) H Activated Partial Thromboplast Time 29 SEC (23-33) Sodium Level 138 MMOL/L (136-145) Potassium Level 3.7 MMOL/L (3.5-5.1) Chloride Level 98 MMOL/L (98-107) Carbon Dioxide Level 31 MMOL/L (21-32) Anion Gap 9 mmol/L (5-15) Blood Urea Nitrogen 15 mg/dL (7-18) Creatinine 0.8 MG/DL (0.55-1.30) Estimat Glomerular Filtration Rate > 60 mL/min (>60) Glucose Level 99 MG/DL (74-106) Calcium Level 9.0 MG/DL (8.5-10.1) Troponin I 0.419 ng/mL (0.000-0.056) C-Reactive Protein, Quantitative 3.3 mg/dL (0.00-0.90) H Triglycerides Level 37 MG/DL (30-150) Cholesterol Level 78 MG/DL (< 200) LDL Cholesterol 48 mg/dL (<100) HDL Cholesterol 28 MG/DL (40-60) L Cholesterol/HDL Ratio 2.8 (3.3-4.4) L Thyroid Stimulating Hormone (TSH) 1.671 uiU/mL (0.358-3.740) Intake and Output 10/12/17 10/13/17 19:00 07:00 Intake Total 1400 ml 120 ml Output Total 100 ml 500 ml Balance 1300 ml -380 ml Intake Oral 120 ml IV Total 1000 ml Other 400 ml Output Urine Total 100 ml 500 ml # Voids 3 1 Objective General: No acute distress, awake and alert HEENT: NCAT, sclera anicteric, PERRL, EOMI. Neck: Supple, no significant jugular venous distention, Lungs: Good inspiratory effort, no accessory muscle use, clear to auscultation bilaterally, no Wheeze or Rales. Heart: Regular rate and rhythm, normal S1/S2, no murmur Abdomen: soft, nontender, nondistended. Normoactive bowel sounds. / Rectal: Refused and deferred. Extremities: No Cyanosis , clubbing or edema. Neuro: A&O x 3, Able to move all extremities Skin: warm, no rashes or lesions Assessment/Plan Assessment/Plan Large left cerebellar infarct most probably cardioembolic. Hypertension DM 2 Apical thrombosis Severe cardiomyopathy Plan: Hold off on anticoagulation due to large CVA Call social service / warehouse distribution manager for transfer to higher level of care. F/U with labs Neurocheck 2D Echo: Normal left ventricular chamber size. mobile apical thrombus with the area of 5.4 cm present . Left ventricular ejection fraction estimated to be 15-20 %. Mild left ventricular hypertrophy by 2-D. No evidence of pericardial effusion. Mild bi- atrial enlargement. Right ventricular chamber sizes is within normal limits. Focal aortic valve sclerosis with adequate cusp excursion. Moderately Thickened mitral valve leaflets with normal excursion. Moderately Mitral annulus and aortic root calcification. Pulmonic valve not well visualized. Normal tricuspid valve structure. IVC dilated at 3.4 cm without physiologic collapse suggestive of increased RA pressure. A color flow and spectral Doppler study was performed and revealed: No aortic regurgitation. Mild mitral regurgitation. Left ventricular diastolic function cannot determined due to arrhythmia . Mild tricuspid regurgitation. Tricuspid systolic velocities suggests peak right ventricular systolic pressure of 44 mmHg,consistent with moderate pulmonary hypertension. No Pulmonic regurgitation present. Juan Hernández MD Oct 13, 2017 15:18
--- NOTE | 2017-10-13 16:57 | Diagnostic Imaging Report ---
Indication: Chest pain Technique: One view of the chest Comparison: none Findings: The heart is borderline enlarged. Lungs and pleural spaces are clear. Impression: No acute process
[2017-10-13] MEDS ORDERED: Nitroglycerin Subl 0.4mg tab SL PRN (17:45)
[2017-10-13] MEDS ORDERED: Albuterol/Ipratropium 3ml neb HHN PRN (18:00)
[2017-10-13] MEDS ORDERED: dilTIAZem HCl 25mg/5ml Inj IV PRN (18:00)
[2017-10-13] MEDS ORDERED: Morphine Sulfate 4mg/ml Inj IVP PRN (18:00)
[2017-10-13] MEDS ORDERED: Miralax 17gm pkt ORAL PRN (18:00)
[2017-10-13] MEDS ORDERED: Enalaprilat 2.5mg/2ml Inj IV PRN (18:00)
--- NOTE | 2017-10-13 19:30 | Consultation ---
DATE OF CONSULTATION: 10/13/2017 INFECTIOUS DISEASE CONSULTATION CONSULTING PHYSICIAN: Quentin Cardenas M.D. PRIMARY ATTENDING PHYSICIAN: Katiana Briggs M.D. REASON FOR CONSULT: Tracheobronchitis. HISTORY OF PRESENT ILLNESS: The patient is a 52-year-old male, [facility]2017 with cough and difficulty of breathing. The patient has baseline dementia. He is not a source of history. Most of the history obtained by the son that is sitting at bedside. PAST MEDICAL HISTORY: Significant for diabetes mellitus type 2, Alzheimer's dementia, had previous admission with proctitis and left hip replacement surgery. SOCIAL HISTORY: Originally from [place]. 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 REVIEW OF SYSTEMS: No fever. No chills. The patient is bedbound and cannot walk since hip surgery around one year ago. No other history obtainable. He had some chest pain this morning, that are now resolved. PHYSICAL EXAMINATION: GENERAL APPEARANCE: Looks comfortable, pain free, awake. VITAL SIGNS: Temperature 97.5 degrees, pulse 110, and blood pressure 123/64. HEAD AND NECK: [place] conjunctiva. HEART: Regular. LUNGS: Decreased sounds at expansion. ABDOMEN: Soft. Nontender. EXTREMITY: He has no edema. LABORATORY AND DIAGNOSTIC DATA: WBC 9.2, hemoglobin 14.2, hematocrit 42.7 and platelets 165,000. Sodium 141, potassium 3.4, chloride 104, bicarbonate 30, BUN 18 and creatinine 1.2. Creatinine at the time of admission was 1.5. Hemoglobin A1c was 7.8. UA was negative. ABG showed hypoxemic with PaO2 of 52.3. Blood culture x2 are negative. Influenza A and B are negative. VRE and MRSA negative. Sputum culture grew Haemophilus influenzae beta lactamase negative. Chest x-ray showed no acute process. IMPRESSION: Tracheobronchitis. Culture grew Haemophilus influenzae. The patient is hypoxemic. Sr. Director Product Management want to rule out pulmonary emboli, has diabetes mellitus type 2, acute renal failure and Alzheimer's dementia. RECOMMENDATION: Continue with current antibiotic, ceftriaxone. At the time of discharge may be discharged with p.o. amoxicillin. At the end of my exam, I thank Dr. Briggs, for involving me in the care of this patient. Quentin Cardenas M.D. DR: KARL JOB#: [id number] CC: HANNY
--- NOTE | 2017-10-13 19:32 | Cardiology Progress Note ---
Assessment/Plan Assessment/Plan vertigo cerebellar cva htn dm tobaco use do marijuana use poor medical compliance cm lv thrombus smoking cessation d./ w family needs neuro evla carotid duplex being done now ekg ordered yest not yet performed echo noted i personally reviewed some images poor ef has mobile apical density likely a thrombus however appears to have on some images internal echo free space which is not typical of a thrombus he cannot get anticoagulated yet due to large size of cva and fear of hemorrhagic conversion beign tramonafer to higer level of care than is avialbe at his facility will need cardiac friedman eventually i started statin last ntei arbs alreadly ecotrin when ok with neuro Subjective Cardiovascular: Denies: chest pain, lightheadedness, palpitations Respiratory: Denies: shortness of breath Gastrointestinal/Abdominal: Denies: abdominal pain Genitourinary: Denies: burning Objective Last 24 Hour Vital Signs Date Time Temp Pulse Resp B/P (MAP) Pulse Ox O2 Delivery O2 Flow Rate FiO2 10/13/17 18:00 93 20 133/107 100 Nasal Cannula 2.0 10/13/17 17:00 91 20 139/100 96 Nasal Cannula 2.0 10/13/17 16:20 97.6 96 20 139/88 94 Nasal Cannula 2.0 97.6 10/13/17 16:20 95 10/13/17 12:00 89 10/13/17 08:38 142/90 10/13/17 08:13 100 18 Room Air 10/13/17 08:00 111 10/13/17 08:00 97.9 108 20 131/98 94 Room Air 97.9 10/13/17 04:00 87 10/13/17 04:00 98.1 85 20 139/89 96 Room Air 98.1 10/13/17 00:00 89 10/13/17 00:00 99.0 89 20 127/91 95 Room Air 99.0 10/12/17 21:41 88 18 Room Air 10/12/17 20:00 88 10/12/17 20:00 98.2 87 20 132/86 92 Room Air 98.2 General Appearance: no apparent distress, alert Neck: supple Cardiovascular: normal rate, regular rhythm Respiratory/Chest: lungs clear, crackles/rales - right base Abdomen: normal bowel sounds, non tender, soft Extremities: no swelling Intake and Output 10/12/17 10/13/17 19:00 07:00 Intake Total 1400 ml 120 ml Output Total 100 ml 500 ml Balance 1300 ml -380 ml Intake Oral 120 ml IV Total 1000 ml Other 400 ml Output Urine Total 100 ml 500 ml # Voids 3 1 Laboratory Tests Test 10/13/17 06:40 10/13/17 18:00 White Blood Count 8.9 K/UL (4.8-10.8) Red Blood Count 5.54 M/UL (4.70-6.10) Hemoglobin 13.2 G/DL (14.2-18.0) L Hematocrit 43.0 % (42.0-52.0) Mean Corpuscular Volume 78 FL (80-99) L Mean Corpuscular Hemoglobin 23.9 PG (27.0-31.0) L Mean Corpuscular Hemoglobin Concent 30.8 G/DL (32.0-36.0) L Red Cell Distribution Width 17.7 % (11.6-14.8) H Platelet Count 211 K/UL (150-450) Mean Platelet Volume 7.8 FL (6.5-10.1) Neutrophils (%) (Auto) 71.7 % (45.0-75.0) Lymphocytes (%) (Auto) 14.3 % (20.0-45.0) L Monocytes (%) (Auto) 5.9 % (1.0-10.0) Eosinophils (%) (Auto) 7.4 % (0.0-3.0) H Basophils (%) (Auto) 0.8 % (0.0-2.0) Prothrombin Time 12.5 SEC (9.30-11.50) H Prothromb Time International Ratio 1.2 (0.9-1.1) H Activated Partial Thromboplast Time 29 SEC (23-33) Sodium Level 138 MMOL/L (136-145) Potassium Level 3.7 MMOL/L (3.5-5.1) Chloride Level 98 MMOL/L (98-107) Carbon Dioxide Level 31 MMOL/L (21-32) Anion Gap 9 mmol/L (5-15) Blood Urea Nitrogen 15 mg/dL (7-18) Creatinine 0.8 MG/DL (0.55-1.30) Estimat Glomerular Filtration Rate > 60 mL/min (>60) Glucose Level 99 MG/DL (74-106) Calcium Level 9.0 MG/DL (8.5-10.1) Troponin I 0.419 ng/mL (0.000-0.056) Pending C-Reactive Protein, Quantitative 3.3 mg/dL (0.00-0.90) H Triglycerides Level 37 MG/DL (30-150) Cholesterol Level 78 MG/DL (< 200) LDL Cholesterol 48 mg/dL (<100) HDL Cholesterol 28 MG/DL (40-60) L Cholesterol/HDL Ratio 2.8 (3.3-4.4) L Thyroid Stimulating Hormone (TSH) 1.671 uiU/mL (0.358-3.740) DYLAN AMIN Oct 13, 2017 19:32
--- NOTE | 2017-10-13 19:45 | Consultation ---
DATE OF CONSULTATION: 10/13/2017 NEUROLOGY CONSULTATION CONSULTING PHYSICIAN: Matheus Elise M.D. REQUESTING PHYSICIANS: Wendy Marroquin M.D., Juan Hernández M.D. and Daniel Duffy M.D. HISTORY: Mr. Benito Peace is a 52-year-old, right-handed, gentleman, who has a long history of untreated hypertension and diabetes mellitus. He was functioning relatively well until 10/11/2017 when he got back home after work at approximately 4 p.m. While at home, he suddenly became vertiginous. He started to have a sensation of the room spinning and he had severe nausea and vomiting. The problem continued and as a result of that, he was brought to the [facility] emergency room on 10/12/2017. An MRI scan of the brain was done and revealed a large left cerebellar hemispheric infarct involving the entire left cerebellum and in addition, also involving the vermis. In addition, he also had significant deep white matter disease involving both hemispheres. He was watched in the hospital and this morning an echocardiogram was done, which revealed an ejection fraction of 15% and in addition a left ventricular thrombus. This consultation was requested to evaluate and manage the patient from a neurological point of view. At this point in time, the patient feels a little better than when he came in. He still feels quite nauseous and had a sensation of motion from time to time. He denies any weakness on one side or the other, numbness on one side or the other, problems with speech, problems with language, problems with vision. He also denies any similar symptoms in the past. PAST MEDICAL HISTORY: Significant for hypertension and diabetes mellitus for numerous years, but has been untreated. FAMILY HISTORY: Significant for high blood pressure and diabetes mellitus in other family members. PERSONAL HISTORY: Home: He lives with his and children. 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 Habits: He has been smoking for numerous years. At this point in time, he smokes approximately 5 to 6 cigarettes per day. He consumes approximately 3- 4 beers every day. He denies use of any illicit drugs. MEDICATIONS: Present medications include aspirin, losartan, Protonix, Restoril, Lipitor, aspart insulin, heparin for DVT prophylaxis, nitroglycerin, albuterol, Tylenol, morphine sulfate, MiraLAX, Zofran, Vasotec and Cardizem. PHYSICAL EXAMINATION: GENERAL: He is a well-developed and well-nourished, pleasant gentleman, lying in bed, in no acute distress. VITAL SIGNS: Pulse 89 per minute, blood pressure 142/90 mmHg, respirations 18 per minute, and temperature 97.9 degrees Fahrenheit. HEAD: Normocephalic and atraumatic. EENT: Examination benign. NECK: No neck rigidity was observed. NEUROLOGIC EXAMINATION: MENTAL STATUS EXAMINATION: He was awake and alert when aroused, but was somnolent otherwise. He was oriented to [facility], [facility] and October 2017. He did not know the exact date. He was able to recall 3/3 words immediately after 1 minute and after 3 minutes on the second trial. He was able to remember presidents, Trump and Obama, but could not remember presidents prior to that. His mathematical skills were minimally impaired. His visuospatial function was relatively good. SPEECH: He had no dysarthria. LANGUAGE: He had no aphasia. CRANIAL NERVE EXAMINATION: II: The visual bustamante were intact on confrontation testing. III, IV & : External ocular movements were full and the pupils 3 mm in diameter, equal, round, regular, and reactive to light. V: He had normal facial sensations and the temporalEs, masseters, and pterygoids functioned normally. VII: He had normal facial expressions and no facial asymmetry. VIII: He was able to hear well bilaterally. He did have a few beats of nystagmus when he looked to the left side. IX: The palate moved symmetrically on phonation. X: He had no hoarseness of voice. XI: The sternocleidomastoids and trapezii functioned normally. XII: The tongue was in the midline without any fasciculations or atrophy. MOTOR SYSTEM: The tone was normal in all four extremities. Examination of muscle mass revealed no focal wasting. Examination of power revealed grade 5/5 power in all muscle groups tested. SENSORY EXAMINATION: He had intact sensations to pinprick, light touch, and graphesthesia. COORDINATION: He performed well on [id number] and julo-bv-idpf testing. Rapid alternating movements were clumsy on the left side, but not on the right side. REFLEXES: 0 at the biceps, triceps, brachioradialis, knees, and ankles. The plantar responses were flexor bilaterally. SITTING: When he was made to sit up, he had truncal ataxia. STANCE & GAIT: Could not be tested because he was quite unsteady. DIAGNOSTIC IMPRESSION: 1. Mr. Benito Peace is a 52-year-old, right-handed, gentleman, who does have a past history of hypertension and diabetes mellitus, that had been untreated for quite some time. On 10/11/2017, he suddenly became vertiginous, had nausea and vomiting. On the next day, he presented to the [facility] emergency room where an MRI of the brain revealed cerebellar infarct. He was then evaluated with an echocardiogram, which revealed an ejection fraction of 15% and left ventricular clot. 2. On neurological examination, at this time, he is somnolent, but can be aroused. When he is aroused, he is oriented except for the exact date, has problems with recent and remote memory, higher cognitive function, a few beats of nystagmus when he looks to the left side, clumsiness on rapid alternating movement on the left side and truncal ataxia. 3. The MRI scan of the brain performed on 10/12/2017 reveals a large left cerebellar hemispheric infarct. In addition, the vermis is also involved. 4. The patient's history, neurological examination, and imaging studies are most compatible with a large left cerebellar infarct with involvement of the vermis, most probably cardioembolic in nature. RECOMMENDATIONS: 1. Agree with management thus far. 2. The patient should be watched in an ICU setting. 3. The patient's blood pressure should be controlled and the systolic blood pressures should be kept in the 110 to 130 range. 4. At this point in time, anticoagulation is not recommended, however, in approximately one week from now we may have to anticoagulate him because of his large left ventricular clot and the risk of recurrent embolization. 5. A repeat CT scan of the brain should be performed tomorrow to ascertain that the cerebellar edema has not worsened significantly. 6. Ideally, the patient should be in an institution where neurosurgical intervention is available, as if he decompensates, he may need an intervention immediately. Thank you for entrusting me with the care of Mr. Peaec. I shall follow him with you. Matheus Elise M.D., M.S.P.H. DR: PENELOPE JOB#: [id number] MTDD
[2017-10-13] MEDS ORDERED: Atorvastatin 20mg tab ORAL SCH (21:00)
[2017-10-13] MEDS ORDERED: NovoLOG Insulin Flexpen SUBQ SCH (21:00)
[2017-10-13] MEDS ORDERED: Heparin 5000 units/ml inj SUBQ SCH (22:00)
[2017-10-13] MEDS ORDERED: Enalaprilat 2.5mg/2ml Inj IV ONE (22:50)
[2017-10-14] VITALS: BP 136/103
[2017-10-14 01:00] VITALS: BP 135/103
[2017-10-14 02:00] VITALS: BP 125/91
[2017-10-14] MEDS ORDERED: Aspirin Baby 81mg ORAL SCH (09:00)
[2017-10-14] MEDS ORDERED: Losartan 50mg tab ORAL SCH (09:00)
--- NOTE | 2017-10-15 09:39 | Discharge Summary ---
Discharge Summary Discharge Summary Discharge Summary DATE OF ADMISSION: 10/12/2017 DATE OF DISCHARGE: 10/14/2017 REASON FOR ADMISSION: 52 years old male with past medical history significant for hypertension and diabetes, presented with complaints of vertigo/spinning sensation over the past 2 days. Patient also reported vomiting. He reported symptoms worse with movement of his head. He also reported the symptoms intensified when he opened his eyes. He denied any trauma or injury. He also noted occasional shortness of breath. He denied chest pain no recent illness. No fever ,no chills. No blurry vision. No focal weakness. Vital signs were stable in emergency department. Urine toxicology screen was positive for marijuana. CT of the head revealed no acute hemorrhage, but showed acute to subacute left cerebellar CVA. MRI of the brain revealed acute left cerebellar CVA with associated edema. No associated hemorrhage. No associated mass effect. Laboratory workup revealed elevated troponin -0.425. ECG revealed normal sinus rhythm, no acute ischemic changes, left bundle branch block. Patient was given aspirin after determined by CT and MRI that no acute bleeding was present. Patient was admitted to ICU for further management with diagnosis of CVA due to embolism of left cerebellar artery, elevated troponin, hypertension, diabetes, CONSULTANTS: assistant city attorney Dr. Hollingsworth neurologist Dr. Burnette pulmonary Dr. Marroquin [facility]: Patient admitted to ICU with the frequent neuro checks. Neurology, cardiology and critical care consults requested. Echocardiogram revealed left ventricular ejection fraction of 15-20%. Mobile apical thrombus in left ventricular chamber. Right ventricular systolic pressure of 44 consistent with a moderate pulmonary hypertension. Per neurology, patient had large left cerebellar infarct with involvement of the vermis, most probably of cardioembolic nature. He recommended to have blood pressure control with the range to keep systolic blood pressure between 110 and 130. At this point anticoagulation was not recommended by neurologist. However in approximately one week he will need to start anticoagulation because of the large left ventricular thrombus. Neurologist ordered to repeat CT of the brain to ascertain that cerebral edema not worsen significantly. Neurologist recommended transfer to institution where neurosurgical intervention would be available , in case if patient decompensate and may need intervention immediately. Patient had frequent neuro checks. Content Coordinator closely followed. Elevated troponin levels were flat, likely due to demand ischemia. Lipid panel was stable. Patient was on statin and ARB for blood pressure control. Blood pressure stable with systolic range in 110-130 as recommended by neurologist. Discussed with the family regarding smoking cessation. To reiterate, patient could not get anticoagulation at this time due to the large size of the CVA and fear of hemorrhagic conversion. Blood sugar was managed with sliding scale insulin. Venous duplex bilateral lower extremities was negative for DVT. DVT prophylaxis provided. Supplemental oxygen and pulmonary toilet provided as needed. Supportive care provided. Bowel regimen instituted. Pain management was addressed. Fall precautions maintained. dental manager was contacted for transfer to higher level of care. [facility] level [facility] care [facility] for further management. 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 Left ventricular apical thrombus Severe cardiomyopathy with ejection fraction 15-20% Elevated troponin Hypertension Diabetes mellitus type 2 Tobacco use disorder Marijuana use Poor compliance DISCHARGE MEDICATIONS: List of medication was sent to accepting facility DISCHARGE INSTRUCTIONS: Patient was transferred to [facility] for higher level of care I have been assigned to dictate discharge summary for this account. I was not involved in the patient's management. Jess Child NP ([place]) Oct 15, 2017 09:39
--- NOTE | 2017-10-16 21:27 | Cardiology Report ---
APPROVED REPORT EKG Measurement Heart [id number] Sinus rhythm with 1st degree AV block Possible Left atrial enlargement Left axis deviation Left bundle branch block Abnormal ECG
== END 2017-10-14 02:30 | disposition short-term general hospital (02) | DRG 45 ==
LOC: EDBD 08:45 → EMR 09:09 → 2E 10:20 → EDBEDREQ 11:22 → 2E 15:12 → ICU 10-13 16:00
DX: I63.449 Cerebral infarction due to embolism of unspecified cerebellar artery (principal); N17.9 Acute kidney failure, unspecified; I24.0 Acute coronary thrombosis not resulting in myocardial infarction; I42.9 Cardiomyopathy, unspecified; R74.9 Abnormal serum enzyme level, unspecified; I10 Essential (primary) hypertension; E11.9 Type 2 diabetes mellitus without complications; F17.200 Nicotine dependence, unspecified, uncomplicated; J40 Bronchitis, not specified as acute or chronic; Z91.19 Patient's noncompliance with other medical treatment and regimen
CPT/HCPCS: 36415; 70450; 70551; 71045; 80048; 80053; 80061; 80307; 81003; 82248; 82962; 83690; 84443; 84484; 85007; 85025; 85610; 85730; 86140; 93005; 93306; 93880; 93970; 94664; 94760; 99291; J1815; J2405